=== PATIENT | male | born 1975 | race Caucasian/White ===

== ENCOUNTER 2019-04-23 15:13 | Emergency (ER) | payer MEDICAID ==
[2019-04-23] MEDS ORDERED: Tetracaine HCl/PF 0.5% 4 ML Bottle EYERT ONE (15:37)
[2019-04-23] MEDS ORDERED: Prochlorperazine 10 MG Tab PO ONE (16:24)
[2019-04-23] MEDS ORDERED: diphenhydrAMINE 25 MG Cap PO ONE (16:24)
[2019-04-23] MEDS ORDERED: Ketorolac 60 MG/2 ML SDV IM ONE (16:25)
[2019-04-23] MEDS ORDERED: Dexamethasone/Tobramycin 0.1-0.3% Ophth Oint 3.5 GM Tube EYERT ONE (16:26)
--- NOTE | 2019-04-23 16:40 | EDM.PDOC ---
ED HPI GENERAL MEDICAL PROBLEM - General Chief Complaint: Eye Problems Stated Complaint: BLOOD SHOT IN RIGHT EYE Time Seen by Provider: 04/23/19 16:28 Source of Information: Reports: Patient History Limitations: Reports: No Limitations - History of Present Illness INITIAL COMMENTS - FREE TEXT/NARRATIVE: pt is totally out of control and he has a migraine headache and a very painful rt eye. He does not think he was doing anything when this started. He thinks there is something in the eye. He also has a migraine headache,. Onset: Other ( this has been going on for 4 days. ) Duration: Hour(s): Location: Reports: Head, Face Associated Symptoms: Reports: No Other Symptoms right eye Pain Score (Numeric/FACES): 10 - Related Data Allergies Allergy/AdvReac Type Severity Reaction Status Date / Time No Known Allergies Allergy Verified 04/23/19 15:32 Home Meds: Home Meds NK [No Known Home Meds] 04/23/19 [History] Social & Family History - Tobacco Use Smoking Status *Q: Current Every Day Smoker Years of Tobacco use: 30 Packs/Tins Daily: 0.5 - Caffeine Use Caffeine Use: Reports: Tea - Recreational Drug Use Recreational Drug Use: No ED ROS GENERAL - Review of Systems Review Of Systems: See Below Constitutional: Reports: No Symptoms HEENT: Reports: Eye Pain, Other (pt has a very red eye and he dioes not know why. He wondered if something was in the eye. He was very agitated. ) Respiratory: Reports: No Symptoms Cardiovascular: Reports: No Symptoms Endocrine: Reports: No Symptoms GI/Abdominal: Reports: No Symptoms : Reports: No Symptoms Musculoskeletal: Reports: No Symptoms Skin: Reports: No Symptoms Neurological: Reports: Headache, Other (pt is having a severe headache and eye pain) Psychiatric: Reports: No Symptoms ED EXAM GENERAL W FULL EYE - Physical Exam Exam: See Below Text/Narrative:: pt arrived with a severe headache and pain in his left eye. He thinks he could have something in the eye. Exam Limited By: No Limitations General Appearance: Alert, Anxious, Severe Distress, Other (pt is very agitated and uncooperative. The eye is very red and at first he wouild not us to touch the eye. This has been going on for 4 days. He also has a severe headache. The eye is very injected, tetracaine drops wasinserted in the eye. He did alow me to see some of the eye. No foreighn body was seen , The eye was stained and there were 2 scratches in the lower conjuntivial area. The eye did have some edema in the conjuntivia. The tetracaine helped but the pt still did not cooperate for a through eye exam ) Comments: The eye was patched with tobradex eye ointment. He will leave the patch in place until noon tomorrow. He will then use the ointment tid. He has an appt with his eye Dr On Sunday. Ears: Normal TMs Nose: Normal Inspection Throat/Mouth: Normal Inspection Head: Atraumatic Neck: Normal Inspection Respiratory/Chest: No Respiratory Distress Cardiovascular: Regular Rate, Rhythm Course - Vital Signs Last Recorded V/S: Last Vital Signs Temp 35.8 C 04/23/19 15:32 Pulse 79 04/23/19 15:32 Resp 16 04/23/19 15:32 BP 112/76 04/23/19 15:32 Pulse Ox 98 04/23/19 15:32 - Orders/Labs/Meds Meds: Medications Discontinued Medications Generic Name Dose Route Start Last Admin Trade Name Freq PRN Reason Stop Dose Admin Diphenhydramine HCl 50 mg 04/23/19 16:24 04/23/19 16:40 Benadryl PO 04/23/19 16:25 50 mg ONETIME ONE Administration Ketorolac Tromethamine 60 mg 04/23/19 16:25 04/23/19 16:40 Toradol IM 04/23/19 16:26 60 mg ONETIME ONE Administration Prochlorperazine Maleate 10 mg 04/23/19 16:24 04/23/19 16:40 Compazine PO 04/23/19 16:25 10 mg ONETIME ONE Administration Tetracaine HCl 1 ml 04/23/19 15:37 04/23/19 15:40 Tetracaine 0.5% Steri-Unit Elisabeth EYERT 04/23/19 15:38 1 ml ASDIRECTED ONE Administration Tobramycin/Dexamethasone 1 gm 04/23/19 16:26 04/23/19 16:40 Tobradex Ophth Oint EYERT 04/23/19 16:27 1 gm ONETIME ONE Administration - Re-Assessments/Exams Free Text/Narrative Re-Assessment/Exam: 04/23/19 17:13 The eye was patched as stated above. He was given totodol, benadryl and compazine 10 mg for the headache. He states that it is better after thast and insisted in leaving. Departure - Departure Time of Disposition: 17:00 Disposition: Home, Self-Care 01 Condition: Fair Clinical Impression: Acute bacterial conjunctivitis, Migraine headache - Discharge Information Instructions: Bacterial Conjunctivitis, [id number] Referrals: PCP,None [Primary Care Provider] - Forms: ED Department Discharge Care Plan Goals: keep patch on until tomorrow at noon, start using the ointment in the eye tid, keep appt with the eye Dr in [place] on Sunday to recheck the eye, rtc if it should get worse. Sepsis Event Note - Evaluation Sepsis Screening Result: No Definite Risk - Focused Exam Vital Signs: Vital Signs Temp Pulse Resp BP Pulse Ox 04/23/19 15:32 35.8 C 79 16 112/76 98 04/23/19 15:24 35.8 C 79 16 112/76 98 Date Exam was Performed: 04/23/19 Time Exam was Performed: 17:05
== END 2019-04-23 17:20 | disposition home or self-care (01) ==
LOC: JP.ED 15:13
DX: H10.31 Unspecified acute conjunctivitis, right eye (principal); G43.909 Migraine, unspecified, not intractable, without status migrainosus; F17.200 Nicotine dependence, unspecified, uncomplicated
CPT/HCPCS: 96372; 99283; A9270; J1885; Q0164

== ENCOUNTER 2023-12-11 09:22 | Emergency (ER) | payer MEDICAID ==
[2023-12-11 10:13] LABS: BASOPHILS PERCENT AUTO 0.1 % (0.1-1.3); EOSINOPHILS ABSOLUTE AUTO 0.05 K/uL (0.00-0.40); EOSINOPHILS PERCENT AUTO 0.4 % (0.0-5.4); HEMATOCRIT 40.7 % (38.4-49.7); HEMOGLOBIN 14.1 g/dL (12.9-16.9); IMMATURE GRAN ABSOLUTE AUTO 0.05 K/uL (0.00-0.23); IMMATURE GRAN PERCENT AUTO 0.4 % (0.0-0.7); LYMPHOCYTES ABSOLUTE AUTO 2.57 K/uL (0.8-3.3); LYMPHOCYTES PERCENT AUTO 18.8 % (11.4-47.7); MEAN CORPUSCULAR HEMOGLOBIN 31.1 pg (31.6-35.5); MEAN CORPUSCULAR HGB CONC 34.6 g/dL (31.6-35.5); MEAN CORPUSCULAR VOLUME 89.6 fL (81.4-99.0); MONOCYTES ABSOLUTE AUTO 0.54 K/uL (0.20-0.90); MONOCYTES PERCENT AUTO 3.9 % (3.3-12.6); NEUTROPHILS ABSOLUTE AUTO 10.47 K/uL (1.0-7.6); NEUTROPHILS PERCENT AUTO 76.4 % (40.0-78.1); PLATELET COUNT,PLT 230 K/uL (130-375); RED BLOOD CELL COUNT 4.54 M/uL (4.14-5.76); WHITE BLOOD CELL COUNT,WBC 13.7 K/uL (3.2-11.0)
[2023-12-11 10:14] LABS: BASOPHILS ABSOLUTE AUTO 0.02 K/uL (0.00-0.10)
[2023-12-11 10:35] LABS: BLOOD UREA NITROGEN,BUN 9 mg/dL (7-18); CALCIUM 9.1 mg/dL (8.5-10.1); CARBON DIOXIDE,CO2 28 mmol/L (21-32); CHLORIDE,CL 105 mmol/L (100-108); EST CRCL DRUG DOSING (CG) 98.31 mL/min; ESTIMATED GFR 94 mL/min (>60); GLUCOSE RANDOM 93 mg/dL (74-106); SODIUM,NA 142 mmol/L (140-148)
[2023-12-11 10:42] LABS: TROPONIN I HIGH SENSITIVITY < 4.0 pg/mL (<=60.3)
[2023-12-11] MEDS: Ketorolac 30 MG/ML SDV IM ONE (11:18)
== END 2023-12-11 11:38 | disposition home or self-care (01) ==
LOC: JP.ED 09:22
DX: R07.89 Other chest pain (principal); B34.9 Viral infection, unspecified
CPT/HCPCS: 36415; 71046; 80048; 84484; 85025; 96372; 99285; J1885

== ENCOUNTER 2023-12-17 10:31 | Emergency (ER) | payer MEDICAID | END 2023-12-17 12:12 | disposition home or self-care (01) | LOC: JP.ED 10:31 | DX: Z00.01 Encounter for general adult medical examination with abnormal findings (principal); F17.210 Nicotine dependence, cigarettes, uncomplicated | CPT/HCPCS: 99283 ==